=== PATIENT | female | born 1985 | race Native Hawaiian/Other Pacific Islander ===

== ENCOUNTER 2017-11-12 13:39 | Emergency (ER) | payer BC ==
[~2017-11-12] VITALS: Ht 154.9 cm; Wt 47.6 kg
[2017-11-12] MEDS ORDERED: ONDA4TAB8 SL (13:53)
[2017-11-12] MEDS ORDERED: BIRTH CONTROL (13:53)
[2017-11-12] MEDS ORDERED: IV NS 1000 ML 1,000 ML IV ONE (14:00)
[2017-11-12 14:15] LABS: BASOPHILS % (AUTO) 0.7 % (0.0-2.0); EOSINOPHILS % (AUTO) 0.4 % (0.0-7.0); HEMOGLOBIN 14.2 g/dL (10.9-14.3); LYMPHOCYTES # (AUTO) 1.6 K/uL (20.0-40.0); MEAN CORPUSCULAR HEMOGLOBIN 31.5 uug (24.7-32.8); MEAN CORPUSCULAR HGB CONC 35 g/dL (32.3-35.6); MEAN CORPUSCULAR VOLUME 90.8 fL (75.5-95.3); MONOCYTES # (AUTO) 0.4 K/uL (2.0-10.0); MONOCYTES % (AUTO) 6.8 % (0.0-11.0); NEUTROPHILS # (AUTO) 4.2 K/uL (1.8-8.9); NEUTROPHILS % (AUTO) 67.1 % (38.5-71.5); PLATELET COUNT (AUTO) 325 K/uL (179-408); RED BLOOD CELL COUNT(AUTO) 4.52 MIL/uL (3.63-4.92); WHITE BLOOD COUNT (AUTO) 6.3 K/uL (3.8-11.8)
[2017-11-12 14:20] LABS: CREATININE 0.7 mg/dL (0.6-1.3); POTASSIUM 4.2 mmol/L (3.5-5.1)
[2017-11-12 14:29] LABS: BILIRUBIN,TOTAL 0.2 mg/dL (0.2-1.0); TOTAL PROTEIN, SERUM 8.2 g/dL (6.4-8.2)
--- NOTE | 2017-11-12 14:44 | NUR ---
1415- Physician Obstetrician assumes care, pt is AOX4, calm, respiration:easy. Boyfriend is at bedside. Patient's boyfriend said that this patient was recently admitted at another hospital for r/o appendicitis. Today, this patient came to our ER department for persistent dizziness, nausea, generalized weakness,with intermittent abdominal cramping, Blood was drawn, pending urine specimen@this time.
[2017-11-12 16:43] LABS: *BILIRUBIN,URIN NEGATIVE (NEGATIVE); *BLOOD, URINE Trace-intact (NEGATIVE); *CLARITY,URINE CLEAR (CLEAR); *COLOR,URINE YELLOW (YELLOW); *KETONES,URINE NEGATIVE (NEGATIVE); *PROTEIN,URINE NEGATIVE (NEGATIVE); *UROBILINOGEN,URINE 0.2 E.U./dl (NORMAL); LEUKOCYTE ESTERASE ,URINE NEGATIVE (NEGATIVE); NITRITE, URINE NEGATIVE (NEGATIVE); UGLUCOSE NEGATIVE (NEGATIVE)
[2017-11-12 16:45] LABS: *URINE HCG, QUAL NEGATIVE (NEGATIVE)
[2017-11-12 16:47] LABS: SQUAMOUS EPITHELIAL CELL,UR FEW /HPF (NONE SEEN); WBC,URINE 0-3 /HPF (0-3)
[2017-11-12 16:48] LABS: MUCUS,URINE FEW /LPF (0-FEW)
--- NOTE | 2017-11-12 16:52 | NUR ---
IV removed. Catheter intact and site benign. Pressure and 4x4 gauze applied to site. No bleeding noted. Patient discharged to home in stable conditon. Written and verbal after care instructions given to patient and boyfriend. Patient verbalizes understanding of instructions.
== END 2017-11-12 16:53 | disposition home or self-care (01) ==
LOC: ER 13:39
DX: R55 Syncope and collapse (principal); E23.6 Other disorders of pituitary gland
CPT/HCPCS: 36415; 70450; 71045; 80053; 81001; 84703; 85025; 96360; 99285; A4663; J7030